=== PATIENT | male | born 1955 | race Caucasian/White ===

== ENCOUNTER 2017-08-11 05:08 | Emergency (ER) | payer MEDICARE, OTHER ==
[2017-08-11 05:14] VITALS: RESP 18
--- NOTE | 2017-08-11 05:39 | ED ---
Skin/Abscess/FB HPI - General Chief complaint: Skin/Abscess/Foreign Body Stated complaint: Fish hook in hand Time Seen by Provider: 08/11/17 05:16 Source: patient Mode of arrival: ambulatory Limitations: no limitations - History of Present Illness Initial comments: Patient's 61-year-old man who was fishing this morning and embedded a trouble into his left finger. Patient states that he was not able to back the hook out. He states that he is not certain when his last tetanus shot was given . complaint: foreign body -: hour(s) Tetanus Up to Date: no Location: L hand Severity: mild Quality: sharp Consistency: constant Improves with: none Worsens with: none Associated symptoms: denies other symptoms - Related Data Home Medications Medication Instructions Recorded Confirmed Pregabalin [Lyrica] 300 mg PO BID 12/14/14 12/14/14 Previous Rx's Medication Instructions Recorded Omeprazole [PriLOSEC] 20 mg PO AC-BID #60 cap 12/18/14 Allergies Allergy/AdvReac Type Severity Reaction Status Date / Time No Known Allergies Allergy Verified 08/11/17 05:14 Review of Systems ROS Statement: Those systems with pertinent positive or pertinent negative responses have been documented in the HPI. ROS Other: All systems not noted in ROS Statement are negative. 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 pt states that the last few days liteheaded/balance off when up. History of Any Multi-Drug Resistant Organisms: None Reported Past Surgical History: Hernia Repair, Tonsillectomy Additional Past Surgical History / Comment(s): umbilical hernia, colonoscopy/ polypectomy Past Anesthesia/Blood Transfusion Reactions: No Reported Reaction Past Psychological History: No Psychological Hx Reported Smoking Status: Current every day smoker Past Alcohol Use History: Occasional Past Drug Use History: None Reported - Past Family History Mother Additional Family Medical History / Comment(s): mom is 88 years old and healthy no knowmn problems Father Family Medical History: Cancer Additional Family Medical History / Comment(s): esophageal cancer General Exam Limitations: no limitations General appearance: alert, in no apparent distress Skin exam: Present: warm, dry, normal color, other (Patient has a hook to the pad of the left rd digit) Course Vital Signs 08/11/17 05:11 Temperature 97.8 F Pulse Rate 73 Respiratory 18 Rate Blood Pressure 142/98 O2 Sat by Pulse 97 Oximetry Medical Decision Making - Medical Decision Making I performed removal of the fishhook. Skin was cleansed. I instilled approximately half mL of 1% Xylocaine without epinephrine, locally. I then advanced the hook, was able to cut the diana off and then back that look out. Patient tolerated procedure well without any complication. Disposition Clinical Impression: Foreign body in skin Disposition: HOME SELF-CARE Condition: Good Instructions: Soft Tissue Foreign Body (ED) Is patient prescribed a controlled substance at d/c from ED?: No Referrals: [facility],Clinic [Primary Care Provider] - 1-2 days
[2017-08-11] MEDS ORDERED: LIDOCAINE 1% INJ 10MG/ML (20 ML MDV) SQ ONE (05:44)
[2017-08-11] MEDS ORDERED: DIPH,PERTUS(ACELL)TETVAC-LF 0.5 ML VIAL IM ONE (05:52)
[2017-08-11 06:26] VITALS: BP 139/68; PULSE 64
[2017-08-11 06:31] VITALS: TEMP 98
== END 2017-08-11 06:29 | disposition home or self-care (01) ==
LOC: EC 05:08
DX: S60.453A Superficial foreign body of left middle finger, initial encounter (principal); G62.9 Polyneuropathy, unspecified; F17.200 Nicotine dependence, unspecified, uncomplicated; Z23 Encounter for immunization; Z79.899 Other long term (current) drug therapy; W26.8XXA Contact with other sharp object(s), not elsewhere classified, initial encounter
CPT/HCPCS: 99283; 90471; 90715; J2001

== ENCOUNTER 2018-01-18 08:47 | Emergency (ER) | payer MEDICARE, OTHER ==
[2018-01-18 09:02] VITALS: RESP 18
--- NOTE | 2018-01-18 09:54 | ED ---
General Adult HPI - General Chief complaint: Recheck/Abnormal Lab/Rx Stated complaint: post op check Time Seen by Provider: 01/18/18 09:00 Source: patient, RN notes reviewed Mode of arrival: ambulatory Limitations: no limitations - History of Present Illness Initial comments: This is a 8-year-old male who presents emergency department status post thyroidectomy. Patient states he had just undergone to be a last Thursday. Patient states that he go back and after the surgery to clean out a hematoma but he was discharged on Thursday. Patient states since then he's had quite a bit of pressure in his neck but states he's been able to swallow and breathe normally. Patient states he got up this morning coughed once and felt all this fluid come out of the incision site. Patient states the fluid was translucent but brown in color. Patient states after that occurred he had a short episode of lightheadedness did not think he was given a passout. Patient denies chest pain palpitations difficulty breathing or shortness of breath. Patient states once the dizziness resolved he noted that the pressure in his neck had reduced and he was able to swallow better. Patient states currently he has no new complaints and in fact the pressure continues to feel better. Patient has had no drainage since. - Related Data Home Medications Medication Instructions Recorded Confirmed Pregabalin [Lyrica] 300 mg PO BID 12/14/14 01/18/18 Albuterol Inhaler [Ventolin Hfa 1 - 2 puff INHALATION RT-Q6H PRN 01/18/18 Inhaler] Calcium Carbonate [Calcium] 1,200 mg PO BID 01/18/18 01/18/18 Docusate [Colace] 100 mg PO DAILY PRN 01/18/18 01/18/18 Hydrocodone/Acetaminophen [[place] 1 tab PO Q4HR PRN 01/18/18 01/18/18 5-325] Levothyroxine Sodium [Synthroid] 25 mcg PO DAILY 01/18/18 01/18/18 Simvastatin 40 mg PO HS 01/18/18 01/18/18 Previous Rx's Medication Instructions Recorded Omeprazole [PriLOSEC] 20 mg PO AC-BID #60 cap 12/18/14 Amoxicillin/Potassium Clav 1 tab PO BID 3 Days #6 tab 01/18/18 [Augmentin 875-125 Tablet] Allergies Allergy/AdvReac Type Severity Reaction Status Date / Time No Known Allergies Allergy Verified 01/18/18 09:30 Review of Systems ROS Statement: Those systems with pertinent positive or pertinent negative responses have been documented in the HPI. ROS Other: All systems not noted in ROS Statement are negative. 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 pt states that the last few days liteheaded/balance off when up. History of Any Multi-Drug Resistant Organisms: None Reported Past Surgical History: Hernia Repair, Tonsillectomy Additional Past Surgical History / Comment(s): umbilical hernia, colonoscopy/ polypectomy, thyroidectomy Past Anesthesia/Blood Transfusion Reactions: No Reported Reaction Past Psychological History: No Psychological Hx Reported Smoking Status: Former smoker Past Alcohol Use History: None Reported Past Drug Use History: None Reported - Past Family History Mother Additional Family Medical History / Comment(s): mom is 88 years old and healthy no knowmn problems Father Family Medical History: Cancer Additional Family Medical History / Comment(s): esophageal cancer General Exam - General Exam Comments Initial Comments: GENERAL: Patient is well-developed and well-nourished. Patient is nontoxic and well- hydrated and is in no acute distress. ENT: Patient has ecchymosis above the incision site and on the left side of the incision has a area of swelling but there is no active drainage at this time. Neck has full range of motion without eliciting any pain. EYES: The sclera were anicteric and conjunctiva were pink and moist. Extraocular movements were intact and pupils were equal round and reactive to light. Eyelids were unremarkable. PULMONARY: Unlabored respirations. Good breath sounds bilaterally. No audible rales rhonchi or wheezing was noted. CARDIOVASCULAR: There is a regular rate and rhythm without any murmurs gallops or rubs. SKIN: Skin is clear with no lesions or rashes and otherwise unremarkable. NEUROLOGIC: Patient is alert and oriented x3. Cranial nerves II through XII are grossly intact. Motor and sensory are also intact. Normal speech, volume and content. Symmetrical smile. MUSCULOSKELETAL: Normal extremities with adequate strength and full range of motion. PSYCHIATRIC: Normal psychiatric evaluation. Limitations: no limitations Course Vital Signs 01/18/18 01/18/18 08:56 10:51 Temperature 98.3 F 98.6 F Pulse Rate 70 66 Respiratory 18 18 Rate Blood Pressure 141/92 136/88 O2 Sat by Pulse 96 95 Oximetry Medical Decision Making - Medical Decision Making EKG shows normal sinus rhythm at 66 bpm WV interval 252 QRS is under QT intervals 416 QTC is 436. Patient's EKG shows no ST segment elevation or depression or T wave abnormalities are noted. I spoke with about the CAT scan results he said he wasn't concerned and to have the patient follow-up Thursday at the clinic. stated will have air in there because of Surgicel that was placed in the incision site. He did not believe it was an abscess. I will start the patient on Augmentin for just a few days until he follows up with his surgeon tomorrow he can continue the antibiotics at that point. - Lab Data Result diagrams: 01/18/18 10:04 01/18/18 10:04 Lab Results 01/18/18 01/18/18 01/18/18 Range/Units 10:04 10:04 10:04 WBC 8.4 (3.8-10.6) k/uL RBC 5.05 (4.30-5.90) m/uL Hgb 13.9 (13.0-17.5) gm/dL Hct 41.8 (39.0-53.0) % MCV 82.9 (80.0-100.0) fL MCH 27.5 (25.0-35.0) pg MCHC 33.1 (31.0-37.0) g/dL RDW 14.0 (11.5-15.5) % Plt Count 298 (150-450) k/uL Neutrophils % 72 % Lymphocytes % 16 % Monocytes % 4 % Eosinophils % 6 % Basophils % 1 % Neutrophils # 6.0 (1.3-7.7) k/uL Lymphocytes # 1.3 (1.0-4.8) k/uL Monocytes # 0.4 (0-1.0) k/uL Eosinophils # 0.5 (0-0.7) k/uL Basophils # 0.1 (0-0.2) k/uL PT 10.1 (9.0-12.0) sec INR 0.9 (<1.2) APTT 24.9 (22.0-30.0) sec Sodium 140 (137-145) mmol/L Potassium 4.2 (3.5-5.1) mmol/L Chloride 103 (98-107) mmol/L Carbon Dioxide 30 (22-30) mmol/L Anion Gap 7 mmol/L BUN 15 (9-20) mg/dL Creatinine 0.68 (0.66-1.25) mg/dL Est GFR (CKD-EPI)AfAm >90 (>60 ml/min/1.73 sqM) Est GFR (CKD-EPI)NonAf >90 (>60 ml/min/1.73 sqM) Glucose 114 H (74-99) mg/dL Calcium 9.2 (8.4-10.2) mg/dL Total Bilirubin 0.5 (0.2-1.3) mg/dL AST 24 (17-59) U/L ALT 33 (21-72) U/L Alkaline Phosphatase 79 (38-126) U/L Total Protein 6.4 (6.3-8.2) g/dL Albumin 3.6 (3.5-5.0) g/dL Disposition Clinical Impression: Postoperative abscess Disposition: HOME SELF-CARE Condition: Good Instructions: Abscess (ED) Prescriptions: Amoxicillin/Potassium Clav [Augmentin 875-125 Tablet] 1 tab PO BID 3 Days #6 tab Is patient prescribed a controlled substance at d/c from ED?: No Referrals: [facility],Clinic [Primary Care Provider] - 1-2 days Time of Disposition: 12:04
[2018-01-18 10:15] LABS: Basophils # (A) 0.1 k/uL (0-0.2); Basophils % (A) 1 %; Eosinophils # (A) 0.5 k/uL (0-0.7); Eosinophils % (A) 6 %; HCT 41.8 % (39.0-53.0); HGB 13.9 gm/dL (13.0-17.5); Lymphocytes # (A) 1.3 k/uL (1.0-4.8); Lymphocytes % (A) 16 %; MCH 27.5 pg (25.0-35.0); MCHC 33.1 g/dL (31.0-37.0); MCV 82.9 fL (80.0-100.0); Mean Platelet Volume 6.5; Monocytes # (A) 0.4 k/uL (0-1.0); Monocytes % (A) 4 %; Neutrophils % (A) 72 %; Platelet Count 298 k/uL (150-450); RBC 5.05 m/uL (4.30-5.90); WBC 8.4 k/uL (3.8-10.6)
[2018-01-18 10:28] LABS: INR 0.9 (<1.2); Partial Thromboplastin Time 24.9 sec (22.0-30.0); Prothrombin Time 10.1 sec (9.0-12.0)
--- NOTE | 2018-01-18 10:35 | CT ---
EXAMINATION TYPE: CT soft tissue neck w con DATE OF EXAM: 01/18/2018 10:26 AM COMPARISON: None HISTORY: Neck pain and swelling 1 week post op thyroidectomy. CT DLP: 341 mGycm Automated exposure control for dose reduction was used. CONTRAST: CT scan of the neck is performed following with IV Contrast, patient injected with 100 mL of Isovue 3 00. Axial images are obtained, coronal and sagittal reformatted images are reviewed. FINDINGS: At the level of the patient's surgical site there is bilateral fluid density, there is some associated gas present towards the left midline, air-fluid level extends to the subcutaneous soft ti ssues, there is some focal skin thickening. Surgical clips are present bilaterally, thyroid tissue is no longer evident. Airway: No gross abnormality seen. Parotid/submandibular glands: No gross abnormality seen. Carotid/Vascular Structures: Patent, internal carotid arteries are markedly redundant bilaterally Osseous Structures: Degenerative disc changes are present in the visualized spine, there is multileve l foraminal encroachment. Other: No significant adenopathy. IMPRESSION: Findings suggest postoperative abscess at the thyroid bed.
[2018-01-18 10:39] LABS: ALT 33 U/L (21-72); AST 24 U/L (17-59); Albumin 3.6 g/dL (3.5-5.0); Alkaline Phosphatase 79 U/L (38-126); Anion Gap 7 mmol/L; Blood Urea Nitrogen 15 mg/dL (9-20); Calcium 9.2 mg/dL (8.4-10.2); Carbon Dioxide 30 mmol/L (22-30); Chloride 103 mmol/L (98-107); Glucose 114 mg/dL (74-99); Potassium 4.2 mmol/L (3.5-5.1); Sodium 140 mmol/L (137-145); Total Bilirubin 0.5 mg/dL (0.2-1.3); Total Protein 6.4 g/dL (6.3-8.2)
[2018-01-18 12:31] VITALS: BP 138/97; PULSE 67; TEMP 98.1
== END 2018-01-18 12:36 | disposition home or self-care (01) ==
LOC: EC 08:47
DX: T81.41XA Infection following a procedure, superficial incisional surgical site, initial encounter (principal); L02.11 Cutaneous abscess of neck; G62.9 Polyneuropathy, unspecified; Z90.89 Acquired absence of other organs; Z87.891 Personal history of nicotine dependence; Z79.899 Other long term (current) drug therapy
CPT/HCPCS: 36415; 93005; 80053; 85025; 85610; 85730; 70491; 99284; Q9967

== ENCOUNTER → 2019-11-15 | Outpatient (CLI) | payer MEDICARE ==
--- NOTE | 2019-11-15 18:19 | CT ---
EXAMINATION TYPE: CT abdomen pelvis w con DATE OF EXAM: 11/15/2019 COMPARISON: CT abdomen June 03, 2012 HISTORY: hematuria CT DLP: 1963.9 mGycm, Automated Exposure Control for Dose Reduction was Utilized. CONTRAST: CT scan of the abdomen and pelvis is performed with oral and with IV Contrast, patient injected with 100 mL of Isovue 300. FINDINGS: LUNG BASES: No significant abnormality is appreciated. LIVER/GB: Simple-appearing thin-walled cysts scattered throughout the liver are redemonstrated. Unusu al appearance to gallbladder fossa redemonstrated probable normal gallbladder axial image 28 and kala cent thin-walled cystic lesion inferiorly right lateral aspect. Axial image 31. No significant change from prior. Rear duplicated gallbladder in the differential. Given interval 7 year stability this is presumed benign. Prominent elongated cystic duct coronal image 48 redemonstrated. PANCREAS: No significant abnormality is seen. SPLEEN: No significant abnormality is seen. ADRENALS: No significant abnormality is seen. KIDNEYS: Symmetric cortical medullary uptake and excretion without hydronephrosis seen bilaterally. N o suspicious renal masses or calculi. Bladder shows no worrisome mass or calculus. No suspicious wall thickening. BOWEL: Oral contrast reaches level of right colon. No suspicious small or large bowel dilatation. Nor mal gas-filled appendix medially from cecum in the right pelvis. Occasional distal colonic diverticul a. Mild to moderate wall thickening in the left and sigmoid colon presumed product of poor distention , mild uncomplicated acute colitis not excluded. No significant surrounding fat stranding noted. PROSTATE/SEMINAL VESICLES: No gross abnormality seen. LYMPH NODES: No greater than 1cm abdominal or pelvic lymph nodes are appreciated. OSSEOUS STRUCTURES: Bilateral pars defect L5 level with grade 1 anterolisthesis L5 on S1. Moderate di sc space narrowing and vacuum disc phenomenon at this level. Mild disc space narrowing and vacuum dis c phenomenon L4-L5 level. Posterior disc herniation L4-L5 level. Facet arthropathy lower lumbar spine . OTHER: Mild calcified plaque abdominal aorta extends into branch vessels. Small fat-containing left i nguinal hernia. IMPRESSION: 1. Source of hematuria not identified.
== END | disposition home or self-care (01) ==
LOC: RADCTMAIN 14:02
PROVIDERS: ATTEND Urology
DX: R31.0 Gross hematuria (principal)
CPT/HCPCS: 74177; Q9967

== ENCOUNTER 2020-11-01 07:11 | Day surgery (SDC) | payer MEDICARE, OTHER ==
[2020-10-29 15:34] VITALS: BMI 37.3
[~2020-11-01 07:11] MED LIST: LACTATED RINGERS 1,000 ML IV SCH
[2020-11-01] MEDS ORDERED: LIDOCAINE 1% (10MG/ML) FOR IV START INTRADERMA ONE (07:57)
[2020-11-01 08:01] VITALS: TEMP 97.9
[2020-11-01] MEDS ORDERED: PROPOFOL 10 MG/ML 20 ML VIAL IV ONE (08:31)
[2020-11-01] MEDS ORDERED: LIDOCAINE 1% INJ 10MG/ML (20 ML MDV) ONE (08:31)
--- NOTE | 2020-11-01 08:34 | P.GSHP ---
History of Present Illness H&P Date: 11/01/20 Chief Complaint: History of colon polyps Is a 64-year-old male with previous history of colon polyps. Patient presents today for colonoscopy. 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 , migraines,, chronic back pain sciatica, past fx to right foot, toe, ribs, lt hand., hx thyroid cancer with surgery & radiation tx., hx colon polyps., uses c-pap machine. History of Any Multi-Drug Resistant Organisms: None Reported Past Surgical History: Hernia Repair, Tonsillectomy Additional Past Surgical History / Comment(s): umbilical hernia, colonoscopy/polypectomy, thyroidectomy, nerve bx on left heel Past Anesthesia/Blood Transfusion Reactions: No Reported Reaction Past Psychological History: No Psychological Hx Reported Smoking Status: Current every day smoker Past Alcohol Use History: Rare Additional Past Alcohol Use History / Comment(s): smokes 1ppd, started smoking age 20. Past Drug Use History: Marijuana Additional Drug Use History / Comment(s): current marijuana use - Past Family History Sister(s) Family Medical History: Cancer Additional Family Medical History / Comment(s): thyroid cancer Mother Family Medical History: No Reported History Additional Family Medical History / Comment(s): . Father Family Medical History: Cancer Additional Family Medical History / Comment(s): esophageal cancer Medications and Allergies Home Medications Medication Instructions Recorded Confirmed Type Pregabalin [Lyrica] 300 mg PO BID 12/14/14 11/01/20 History Simvastatin 40 mg PO HS 01/18/18 11/01/20 History Aspirin 650 mg PO DIRECTED PRN 10/29/20 11/01/20 History Budesonide/Formoterol Fumarate 2 puff INHALATION BID 10/29/20 11/01/20 History [Symbicort 80-4.5 Mcg Inhaler] Calcium Carbonate/Vitamin D3 1 tab PO DAILY 10/29/20 11/01/20 History [Calcium 500 mg Chewable Tablet] Cholecalciferol [Vitamin D3 (25 25 mcg PO DAILY 10/29/20 11/01/20 History Mcg = 1000 Iu)] Ibuprofen 400 mg PO ONCE 10/29/20 11/01/20 History Levothyroxine Sodium [Synthroid] 175 mcg PO DAILY 10/29/20 11/01/20 History Omeprazole [PriLOSEC] 20 mg PO DAILY 10/29/20 11/01/20 History Allergies Allergy/AdvReac Type Severity Reaction Status Date / Time No Known Allergies Allergy Verified 11/01/20 07:48 Surgical - Exam Vital Signs Temp Pulse Resp BP Pulse Ox 97.9 F 75 16 120/70 95 11/01/20 07:58 11/01/20 07:58 11/01/20 07:58 11/01/20 07:58 11/01/20 07:58 - General well developed, well nourished, no distress - Eyes PERRL - ENT normal pinna - Neck no masses - Respiratory normal expansion - Cardiovascular Rhythm: regular - Abdomen Abdomen: soft, non tender Assessment and Plan Assessment: History of colon polyps. We'll perform colonoscopy.
--- NOTE | 2020-11-01 08:57 | P.OP ---
Date of Procedure: 11/01/20 Preoperative Diagnosis: GERD History of colon polyps Postoperative Diagnosis: Hiatal hernia Esophagitis Procedure(s) Performed: EGD Colonoscopy Anesthesia: MAC Surgeon: Omid Holland Pathology: other (Esophagus) Condition: stable Disposition: PACU Description of Procedure: The patient was placed on the endoscopy table lateral position. He received IV sedation. The gastroscope placed oropharynx passed in the esophagus and stomach. Scope was placed through the pylorus. First and second portion of the duodenum appeared normal. Scope summer back antrum this appeared minimally inflamed. Scope was retroflexed patient had a moderate size hiatal hernia. The GE junction was at 38 cm is. The distal esophagus appeared inflamed this was biopsied. The proximal esophagus appeared normal. Scope withdrawn for patient. Next digital rectal exam was performed. The prostate was symmetrical without nodules. There were no abnormalities noted. There were a few external hemorrhoids. Flexible colonoscope was then placed patient anus passed throughout the entire colon. The ileocecal valve was visualized. Cecum, ascending and transverse colon appeared normal. The descending and sigmoid colon appeared normal. In the rectum was a few sessile polyps was removed with a cold forcep. Scope was withdrawn for patient.
[2020-11-01 09:41] VITALS: BP 117/74; PULSE 88; RESP 14
== END 2020-11-01 10:08 | disposition home or self-care (01) ==
LOC: ORWHC2ENDO 07:11
PROVIDERS: ATTEND Surgery
DX: Z09 Encounter for follow-up examination after completed treatment for conditions other than malignant neoplasm (principal); K31.9 Disease of stomach and duodenum, unspecified; K62.1 Rectal polyp; E78.5 Hyperlipidemia, unspecified; G47.33 Obstructive sleep apnea (adult) (pediatric); J44.9 Chronic obstructive pulmonary disease, unspecified; M54.30 Sciatica, unspecified side; G89.29 Other chronic pain; G62.9 Polyneuropathy, unspecified; G43.909 Migraine, unspecified, not intractable, without status migrainosus; F17.210 Nicotine dependence, cigarettes, uncomplicated; Z86.010 Personal history of colon polyps; E07.9 Disorder of thyroid, unspecified; K44.9 Diaphragmatic hernia without obstruction or gangrene; K21.00 Gastro-esophageal reflux disease with esophagitis, without bleeding; Z79.1 Long term (current) use of non-steroidal anti-inflammatories (NSAID); Z79.51 Long term (current) use of inhaled steroids; Z85.850 Personal history of malignant neoplasm of thyroid
CPT/HCPCS: 45380; 43239; 88305; J2001; J2704

== ENCOUNTER → 2020-12-10 | Outpatient (CLI) | payer OTHER ==
--- NOTE | 2020-12-10 11:12 | FL ---
EXAMINATION TYPE: FL UGI air w esophagus DATE OF EXAM: 12/10/2020 COMPARISON: CT 11/15/2019 HISTORY: K21.9 GERD, K44.9 Hiatal hernia TECHNIQUE: A double contrast UGI study is performed. A total of 93 seconds of fluoroscopic time was utilized during procedure and 14 images obtained. FINDINGS: Sample Distributor image of the abdomen shows no gross abnormality. The esophagus shows normal motility and emptying into the stomach. Small sliding hiatal hernia is pre sent. Patient did not retain gas within the stomach. The stomach shows normal distensibility, peristalsis, and mucosal folds within the limitations of the exam. No evidence of any mass or ulcer disease. No significant gastroesophageal reflux was seen du ring real time performance of this study. The duodenal bulb did not show a well filled image, there was rapid transit of the contrast through t he stomach into the small bowel. IMPRESSION: Small sliding hiatal hernia
== END | disposition home or self-care (01) ==
LOC: RADUSWWP 09:14
PROVIDERS: ATTEND Surgery
DX: K44.9 Diaphragmatic hernia without obstruction or gangrene (principal)
CPT/HCPCS: 74246

== ENCOUNTER 2023-03-04 07:17 | Day surgery (SDC) | payer OTHER ==
[2023-02-25 13:46] VITALS: BMI 36.2
[~2023-03-04 07:17] MED LIST changes: +MOXIFLOXACIN HCL 0.5% DROPS 3 ML BTL OP PRN; +TETRACAINE 0.5% OPHTH (PF) DROPS 4 ML BTL OP PRN; +TIMOLOL 0.5% OPHTH DROPS 5 ML BTL OP PRN
[2023-03-04] MEDS: CYCLOPENTOLATE 1% OPHTH SOLN 2 ML BTL OP PRN ×3 (08:12→08:24)
[2023-03-04] MEDS: PHENYLEPHRINE 2.5% OPHTH DRP 2ML OP PRN ×4 (08:15→08:27)
[2023-03-04] MEDS ORDERED: fentaNYL (PF) 50 MCG/ML 2 ML AMP ONE (09:14)
[2023-03-04] MEDS ORDERED: MIDAZOLAM 2 MG/2 ML VIAL ONE (09:14)
[2023-03-04] MEDS ORDERED: DUOVISC KIT (GREEN BOX) INTRAOCULA ONE (09:27)
[2023-03-04] MEDS ORDERED: BALANCED SALT IRRIG SOLN COMB2 15 ML IRRIG.SOLN INTRAOCULA ONE (09:27)
[2023-03-04] MEDS ORDERED: LIDOCAINE 1% (PF) 10MG/ML VIAL MISCELLANE ONE (09:28)
--- NOTE | 2023-03-04 09:45 | P.OP ---
Date of Procedure: 03/04/23 Preoperative Diagnosis: NS Postoperative Diagnosis: same Procedure(s) Performed: PIOL< OD Implants: [id number] 25.50 Anesthesia: MAC Surgeon: Chuy Ferris Pathology: none sent Condition: stable Disposition: same day Indications for Procedure: blurry vision Operative Findings: no complications
[2023-03-04 10:20] VITALS: BP 111/60; PULSE 63; RESP 16
--- NOTE | 2023-03-04 13:40 | OP ---
OPERATIVE REPORT DATE OF SERVICE : 03/04/2023 PREOPERATIVE DIAGNOSIS: Nuclear sclerosis, right eye. POSTOPERATIVE DIAGNOSIS: Nuclear sclerosis, right eye. OPERATION: Phacoemulsification of cataract and interocular lens implant, right eye. ESTIMATED BLOOD LOSS: Zero. SPECIMEN TAKEN: None. NARRATIVE: After obtaining the appropriate consent, the patient was brought to the operating room where the patient was placed under cardiac monitoring and prepped and draped in the usual sterile manner. At the 11 o'clock position, a 15-degree super sharp blade was used to create a paracentesis followed by instillation of 1% Xylocaine MPF 50:50 mix with BSS into the anterior chamber. This was followed by DuoVisc viscoelastic to stabilize the anterior chamber. At the 9 o'clock position a self-sealing corneal flap incision was created using 2.8 mm marie keratome. A cystotome was used to initiate a continuous tear capsulorrhexis which was completed with the Utrata forceps. A Binkhorst cannula was used to hydrodissect the lens nucleus followed by hydrodelineation. Phacoemulsification of the lens was performed utilizing phacochop in 18.91 seconds at 21% power. The remaining cortical material was removed using the irrigation aspiration mode followed by additional 1% Xylocaine MPF into the anterior chamber followed by viscoelastic to stabilize the capsular bag. A [employer] MX60E 25.5 diopters posterior chamber lens was placed into the capsular bag without difficulty. The remaining viscoelastic material was removed from the anterior chamber with the irrigation/aspiration. Balanced salt solution was used to normalize the intraocular pressure. The incision was checked for watertight integrity. The patient then received 2 drops of 0.5% timolol followed by 2 drops Vigamox, was lightly patched and shielded in the usual manner. There were no complications from the procedure. The patient tolerated the procedure well and was returned to recovery in good condition. MMODL / IJN: [id number] /
== END 2023-03-04 10:27 | disposition home or self-care (01) ==
LOC: OR 07:17
PROVIDERS: ATTEND Ophthalmology
DX: H25.11 Age-related nuclear cataract, right eye (principal); E78.5 Hyperlipidemia, unspecified; G62.9 Polyneuropathy, unspecified; J44.9 Chronic obstructive pulmonary disease, unspecified; F17.200 Nicotine dependence, unspecified, uncomplicated; G47.33 Obstructive sleep apnea (adult) (pediatric); G43.909 Migraine, unspecified, not intractable, without status migrainosus; M19.90 Unspecified osteoarthritis, unspecified site; K21.9 Gastro-esophageal reflux disease without esophagitis; Z79.890 Hormone replacement therapy; Z79.899 Other long term (current) drug therapy; Z85.850 Personal history of malignant neoplasm of thyroid; Z86.010 Personal history of colon polyps; Z80.8 Family history of malignant neoplasm of other organs or systems; Z83.3 Family history of diabetes mellitus; Z82.49 Family history of ischemic heart disease and other diseases of the circulatory system
CPT/HCPCS: 66984; C1780; J2250; J3010; J2001

== ENCOUNTER → 2023-03-25 | Day surgery (SDC) | payer OTHER ==
[~2023-03-25] MED LIST changes: +MIDAZOLAM 2 MG/2 ML VIAL ONE; -MOXIFLOXACIN HCL 0.5% DROPS 3 ML BTL OP PRN; -TIMOLOL 0.5% OPHTH DROPS 5 ML BTL OP PRN; +fentaNYL (PF) 50 MCG/ML 2 ML AMP ONE
[2023-03-25] MEDS: LACTATED RINGERS 1,000 ML IV ONE (07:40)
[2023-03-25] MEDS: CYCLOPENTOLATE 1% OPHTH SOLN 2 ML BTL OP PRN (07:40)
[2023-03-25] MEDS: PHENYLEPHRINE 2.5% OPHTH DRP 2ML OP PRN (07:43)
[2023-03-25] MEDS: MOXIFLOXACIN HCL 0.5% DROPS 3 ML BTL OP PRN (09:08)
[2023-03-25] MEDS: BALANCED SALT IRRIG SOLN COMB2 15 ML IRRIG.SOLN INTRAOCULA ONE (09:08)
[2023-03-25] MEDS: HYALURONATE SODIUM INTRAOCULAR 1 EACH SYRINGE (12MG/ML) INTRAOCULA ONE (09:08)
[2023-03-25] MEDS: TIMOLOL 0.5% OPHTH DROPS 5 ML BTL OP PRN (09:08)
[2023-03-25] MEDS: LIDOCAINE 1% (PF) 10MG/ML VIAL MISCELLANE ONE (09:09)
[2023-03-25] MEDS: EPINEPHrine (PF) 0.3 ML in BALANCED SALT IRRIG SOLN COMB2 500 ML IRRIGATION ONE (09:10)
[2023-03-25] MEDS: EPINEPHrine (PF) 1 MG/ML AMP MISCELLANE ONE (09:10)
--- NOTE | 2023-03-25 09:16 | P.OP ---
Date of Procedure: 03/25/23 Preoperative Diagnosis: NS & floppy iris Postoperative Diagnosis: same Procedure(s) Performed: PIOL, OS Implants: [id number] 25.50 Anesthesia: MAC Surgeon: Chuy Ferris Pathology: none sent Condition: stable Disposition: same day Indications for Procedure: blurry vision Operative Findings: no complications
[2023-03-25 09:38] VITALS: RESP 14; TEMP 97.2
[2023-03-25 10:10] VITALS: BP 130/74; PULSE 82
--- NOTE | 2023-03-26 08:16 | OP ---
OPERATIVE REPORT DATE OF SERVICE : 03/25/2023 PREOPERATIVE DIAGNOSIS: Nuclear sclerosis. POSTOPERATIVE DIAGNOSIS: Nuclear sclerosis. OPERATION: Phacoemulsification of cataract and interocular lens implant, left eye. ESTIMATED BLOOD LOSS: Zero. SPECIMEN TAKEN: None. NARRATIVE: After obtaining the appropriate consent, the patient was brought to the operating room where the patient was placed under cardiac monitoring and prepped and draped in the usual sterile manner. At the 5 o'clock position, a 15-degree super sharp blade was used to create a paracentesis followed by instillation of 1% Xylocaine MPF 50:50 mix with BSS into the anterior chamber. This was followed by Amvisc viscoelastic to stabilize the anterior chamber. At the 3 o'clock position a self-sealing corneal flap incision was created using 2.8 mm marie keratome. A cystotome was used to initiate a continuous tear capsulorrhexis which was completed with the Utrata forceps. A Binkhorst cannula was used to hydrodissect the lens nucleus followed by hydrodelineation. Phacoemulsification of the lens was performed utilizing phacochop in 20.95 seconds at 11.1% power. The remaining cortical material was removed using the irrigation aspiration mode followed by additional 1% Xylocaine MPF into the anterior chamber followed by viscoelastic to stabilize the capsular bag. A Bausch [employer] Lomb MX 60E 25.5 diopters posterior chamber lens was placed into the capsular bag without difficulty. The remaining viscoelastic material was removed from the anterior chamber with the irrigation/aspiration. Balanced salt solution was used to normalize the intraocular pressure. The incision was checked for watertight integrity. The patient then received 2 drops of 0.5% timolol followed by 2 drops Vigamox, was lightly patched and shielded in the usual manner. There were no complications from the procedure. The patient tolerated the procedure well and was returned to recovery in good condition. MMODL / IJN: [id number] /
== END | disposition home or self-care (01) ==
LOC: OR 07:19
PROVIDERS: ATTEND Ophthalmology
DX: H25.12 Age-related nuclear cataract, left eye (principal); E78.5 Hyperlipidemia, unspecified; G47.33 Obstructive sleep apnea (adult) (pediatric); J44.9 Chronic obstructive pulmonary disease, unspecified; F17.200 Nicotine dependence, unspecified, uncomplicated; F12.90 Cannabis use, unspecified, uncomplicated; G62.9 Polyneuropathy, unspecified; M19.90 Unspecified osteoarthritis, unspecified site; K92.2 Gastrointestinal hemorrhage, unspecified; H91.90 Unspecified hearing loss, unspecified ear; Z85.850 Personal history of malignant neoplasm of thyroid; Z79.890 Hormone replacement therapy; Z79.2 Long term (current) use of antibiotics; Z79.899 Other long term (current) drug therapy
CPT/HCPCS: 66984; C1780; J2250; J0171; J3010; J2001

== ENCOUNTER → 2023-08-19 | Outpatient (CLI) | payer OTHER ==
--- NOTE | 2023-08-19 09:35 | US ---
EXAMINATION TYPE: US Aorta Screening DATE OF EXAM: 08/19/2023 COMPARISON: NONE CLINICAL INDICATION: Male, 67 years old with history of Z87.891 PERSONAL HISTORY OF NICOTINE DEPENDEN CE; Screening age 67, h/o smoking, no AAA history TECHNIQUE: Multiple sonographic images of the abdominal aorta are obtained. FINDINGS: EXAM MEASUREMENTS: Abdominal Aorta: Proximal: not seen due to bowel gas Mid: 2.1 x 2.3cm Distal: 1.9 x 1.6cm Bifurcation: Right Iliac: 1.1cm Left Iliac: 0.9cm STERILE TECH NOTES: Normal caliper aorta of portions seen IMPRESSION: No evidence for aortic aneurysm. Limited evaluation of the proximal aorta.
== END | disposition home or self-care (01) ==
LOC: RADUSWWP 09:11
PROVIDERS: ATTEND Family Medicine
DX: Z87.891 Personal history of nicotine dependence (principal)
CPT/HCPCS: 76706